=== PATIENT | male | born 2000 | race Caucasian/White ===

== ENCOUNTER 2021-03-14 09:11 | Emergency (ER) | payer BC, SELFPAY ==
[2021-03-14 09:28] VITALS: BP 125/74; PULSE 70; RESP 18; TEMP 36.8; O2SAT 98; BMI 33.7
[2021-03-14 09:49] VITALS: PULSE 70; RESP 18; TEMP 36.8; O2SAT 98; BMI 33.6
--- NOTE | 2021-03-14 09:57 | HMH.EDUTC ---
[facility] [place] Disposition Clinical Impression: Nausea & vomiting Qualifiers: Vomiting type: unspecified Vomiting Intractability: unspecified Qualified Code(s): R11.2 - Nausea with vomiting, unspecified Disposition: Home, Self-Care Condition on Discharge: Good Instructions: Nausea and Vomiting-Adult, DI for Nausea -- Adult, Ondansetron Additional Instructions: Drink extra fluids with and between meals. If you have difficulty drinking, try very small amounts of water or suck on ice chips. ? Avoid fruit juices, as these do not replace minerals and can actually increase diarrhea. ? Children and adults can use sports drinks to replenish electrolytes. Younger children and infants should use products formulated for children, like oral rehydration solutions. ? Eat food in small amounts and let your stomach recover. ? Get lots of rest. You may feel tired or weak. ? No greasy or fried foods for the next 24-48 hours BRAT diet Bananas Rice Apples and Terril ? Make sure to drink plenty of liquids ? Return if needed ? Straight to ER if any life threatening symptoms ? Zofran as prescribed ? Follow up with family doctor in the next 48-72 hours if no improvement or any worsening of symptoms Prescriptions: Ondansetron [Zofran 4mg ODT] 4 mg PO TIDP PRN #10 tab PRN Reason: Nausea Transmission Status: Pending to [facility]/pharmacy #[id number] Referrals: Provider,Referral, MD [Primary Care Provider] - As needed Forms: Work/School Release Time of Disposition: 10:34 Medical Decision Making - Aydin Inquiry Pt receiving controlled substance: No Aydin was queried for this patient: No Vital Signs: 03/14/21 09:28 03/14/21 09:49 03/14/21 10:21 Temperature 98.2 F 98.2 F 98.2 F Temperature Source Oral Oral Pulse Rate 76 Pulse Rate [Left Radial] 70 70 Respiratory Rate 18 18 16 Blood Pressure 122/78 Blood Pressure [Left Arm] 125/74 Blood Pressure Mean [Left Arm] 91 Blood Pressure Source [Left Arm] Automatic Cuff Blood Pressure Position [Left Arm] Sitting 02 Sat by Pulse Oximetry 98 98 Oxygen Delivery Method Room Air Orders (Tests/Meds): ED MEDICATIONS Discontinued Medications Generic Name Dose Route Start Last Admin Trade Name Freq PRN Reason Stop Dose Admin Ibuprofen 600 mg 03/14/21 09:57 03/14/21 10:11 Ibuprofen 600 Mg Tablet PO 03/14/21 09:58 600 mg ONCE ONE Administration Ondansetron HCl 4 mg 03/14/21 09:57 03/14/21 10:11 Ondansetron 4mg Odt SL 03/14/21 09:58 4 mg ONCE ONE Administration Medical Decision Narrative: Patient state that medication helped with headache and nausea No vomiting since arrival [facility] [place] HPI - General Stated complaint: vomiting Time Seen by Provider: 03/14/21 09:57 Mode of Arrival: Ambulatory Source of Information: Patient Limitations: No Limitations Description of Symptoms (Recalled from Triage Doc. by RN): pt c/o n/v and HARRIS HEENT Symptoms (Recalled from RN notes): Yes (HARRIS) Resp Symptoms (Recalled from RN notes): No Skin Symptoms (Recalled from RN notes): No MS Symptoms (Recalled from RN notes): No Functional Status (Recalled from RN notes): na - History of Present Illness Provider Complaint: Patient states that he thinks something he eat yesterday has made him sick State that he eat yesterday evening and when he got home he laid down States that he woke up and started having mild headache and vomiting States that he has continued to have vomiting and headache since State that he does have headaches and this is like other headaches he has had in the past denies changes in vision or worse headache of his life Denies any other symptoms - Related Data Previous Rx's Medication Instructions Recorded Ondansetron [Zofran 4mg ODT] 4 mg PO TIDP PRN #10 tab 03/14/21 Allergies Allergy/AdvReac Type Severity Reaction Status Date / Time No Known Allergies Allergy Verified 03/14/21 09:52 - Worker's Comp Is this a Worker's Comp case?: No [facility] History
[2021-03-14 10:21] VITALS: BP 122/78; PULSE 76; RESP 16; TEMP 36.8
== END 2021-03-14 10:45 | disposition home or self-care (01) ==
LOC: ER 09:34 → UTC 09:35
PROVIDERS: Emergency Provider Nurse Practitioner
DX: R51.9 Headache, unspecified (principal); R11.0 Nausea
CPT/HCPCS: 99202; G0463

== ENCOUNTER 2021-04-10 13:32 | Emergency (ER) | payer BC, SELFPAY ==
--- NOTE | 2021-04-10 15:20 | HMH.EDUTC ---
[facility] [place] Impression: Viral syndrome, Bronchitis Disposition: Home, Self-Care Condition on Discharge: Good Instructions: DI for Acute Bronchitis, Preventing the Spread of Coronavirus Discharge Instructions Additional Instructions: Drink plenty of fluids. Take tylenol or ibuprofen for pain or fever. Take the medications as directed. Follow up with your regular doctor. GO TO THE ER FOR ANY WORSENING SYMPTOMS Quarantine until you know the results of your covid-19 test. If it is positive, the health department should call you and give you further instructions about your length of Quarantine and other things. Notify your school or workplace of your results and follow their instructions regarding return to work/school. Prescriptions: Albuterol Sulfate [Albuterol Sulfate Hfa] 2 puffs IH Q6HP PRN 30 Days #1 hfa.[email or web address] PRN Reason: Shortness Of Breath Transmission Status: Received by [facility]/pharmacy #[id number] dexAMETHasone [Dexamethasone] 6 mg PO DAILY 6 Days #6 tab Transmission Status: Received by [facility]/pharmacy #[id number] Azithromycin [Z-Ton 250mg Tab*] 250 mg PO UD DOSE PK #6 tab Transmission Status: Received by [facility]/pharmacy #[id number] Referrals: Provider,Referral, [Primary Care Provider] - Forms: Work/School Release Time of Disposition: 16:22 Medical Decision Making - Medical Records Medical records reviewed: No: I reviewed the patient's medical records. - Aydin Inquiry Pt receiving controlled substance: No Vital Signs: 04/10/21 15:22 04/10/21 16:00 Temperature 99.8 F H 99.9 F H Temperature Source Oral Pulse Rate 86 Pulse Rate [Left] 89 Respiratory Rate 21 20 Blood Pressure 127/75 Blood Pressure [Right Arm] 139/79 Blood Pressure Mean [Right Arm] 99 02 Sat by Pulse Oximetry 99 - Lab Data Lab results reviewed: Yes: I reviewed the patient's lab results. Lab Results 04/10/21 15:30: Strep Scn Rapid Clinic Negative Orders (Tests/Meds): ORDERS Category Date Time Status Full Resp Panel w/COVID ([facility]) Routine Lab 04/10/21 15:34 Received Strep Screen Confirmation Stat Micro 04/10/21 15:30 Received [facility] HPI - General Stated complaint: reaction to covid vaccine Time Seen by Provider: 04/10/21 15:20 - History of Present Illness Provider Complaint: He states that he had the first shot of the covid-19 vaccine yesterday. He is unsure which vaccine he took (Pfizer or Moderna). Since then he has had cough, chest tightness and he has felt very bad. He felt fine before his vaccine. But, he did have a viral type illness about a week ago that he had some coughing and nasal congestion with. He got better from that pretty quick, until his new symptoms started. He does not have a history asthma or other lung disease. - Related Data Previous Rx's Medication Instructions Recorded Ondansetron [Zofran 4mg ODT] 4 mg PO TIDP PRN #10 tab 03/14/21 Albuterol Sulfate [Albuterol 2 puffs IH Q6HP PRN 30 Days #1 04/10/21 Sulfate Hfa] hfa.aer.ad Azithromycin [Z-Ton 250mg Tab*] 250 mg PO UD DOSE PK #6 tab 04/10/21 dexAMETHasone [Dexamethasone] 6 mg PO DAILY 6 Days #6 tab 04/10/21 Allergies Allergy/AdvReac Type Severity Reaction Status Date / Time No Known Allergies Allergy Verified 03/14/21 09:52 [facility] History - Hepatitis A Screen Attestation statement:: This patient has been screened for Hepatitis A risk factors. I have reviewed the patient's past medical history: Yes Other Surgeries: Yes: No Previous Surgery Amputation: No Fractures: No - Social History Smoking Status: Never smoker Alcohol Intake: never Substance Use Type: denies use Occupational Status: student Housing: house Household Members: family Family Hx:: No significant family history ROS Obtained: Yes All systems reviewed & no additional complaints - Constitutional Constitutional: Reports as per HPI - Eyes Eyes: Denies eye discharge - ENT Ears, Nose, Mouth, and Throat: Reports as p
[2021-04-10 15:22] VITALS: BP 139/79; PULSE 89; RESP 21; TEMP 37.7; O2SAT 99; BMI 33.0
--- NOTE | 2021-04-10 15:27 | XR_ITS ---
PROCEDURE: XR CHEST 2V CLINICAL HISTORY: cough, congestion COMPARISON: No exams were available for comparison FINDINGS: The cardiomediastinal silhouette and pulmonary vascularity are within normal limits. There is vague increased density in the left lung base laterally suspicious for patchy area of infiltrate. No acute bony abnormalities. IMPRESSION: Patchy infiltrate/pneumonia in the left lung base laterally Dictated by: Denny Kohli MD 04/10/2021 16:24 Denny Kohli MD in [place] 04/10/2021 16:24
[2021-04-10 16:00] VITALS: BP 127/75; PULSE 86; RESP 20; TEMP 37.7
[2021-04-10 16:47] LABS: Adenovirus,PCR Not Detected (NotDetected); Bordetella Pertussis Not Detected (NotDetected); Chlamydophila Pneumoniae, PCR Not Detected (NotDetected); Coronavirus 229E Not Detected (NotDetected); Coronavirus NL63 Not Detected (NotDetected); Coronavirus OC43 Not Detected (NotDetected); Coronovirus HKU1,PCR Not Detected (NotDetected); Human Metapneumovirus Not Detected (NotDetected); Influenza A, PCR Not Detected (NotDetected); Influenza AH1, 2009 Not Detected (NotDetected); Influenza AH1, PCR Not Detected (NotDetected); Influenza AH3,PCR Not Detected (NotDetected); Influenza B, PCR Not Detected (NotDetected); Mycoplasma Pneumoniae, PCR Not Detected (NotDetected); Parainfluenza 1, PCR Not Detected (NotDetected); Parainfluenza 2, PCR Not Detected (NotDetected); Parainfluenza 3, PCR Not Detected (NotDetected); Parainfluenza 4, PCR Not Detected (NotDetected); Respiratory Syncytial Virus Not Detected (NotDetected); Rhinovirus/Enterovirus Not Detected (NotDetected)
[2021-04-10 19:42] LABS: UTC Strep Screen (Rapid) Negative (Negative)
[2021-04-12 04:01] LABS: Coronavirus 19, PCR Detected (NotDetected)
== END 2021-04-10 16:31 | disposition home or self-care (01) ==
PROVIDERS: Emergency Provider Nurse Practitioner Family
DX: U07.1 COVID-19 (principal); B34.9 Viral infection, unspecified
CPT/HCPCS: 71046; 87581; 87633; 87798; 87880; 99202; G0463

== ENCOUNTER 2022-01-02 07:53 | Emergency (ER) | payer BC, SELFPAY ==
[2022-01-02 07:58] VITALS: BP 132/81; PULSE 72; RESP 18; TEMP 36.7; O2SAT 99; BMI 33.7
--- NOTE | 2022-01-02 08:13 | HMH.EDGENADL ---
ED Disposition Clinical Impression: Colitis Disposition: Home, Self-Care Condition on Discharge: Good Additional Instructions: Please note that you CT imaging shows inflammation of your colon and fatty liver. Additionally, your liver enzymes are mildly elevated. Please follow-up with your primary care physician regarding these findings to ensure your enzymes normalize. If you use alcohol, please discontinue any alcohol use or drinking. Continue supportive care at home at this time including ibuprofen, Tylenol and plentiful hydration. If your condition worsens or any other concerns arise, please return to the emergency department for reassessment. Referrals: Provider,Referral, [Primary Care Provider] - - Critical Care Critical Care Time: No Attestation: On 01/02/22, the high probability of a clinically significant, sudden or life threatening deterioration of the following system(s) required my full and direct attention, intervention and personal management. The time I documented below is in addition to time spent performing reported procedures but includes the following listed in this critical care notation. Medical Decision Making - Medical Records Medical records reviewed: Yes: I reviewed the patient's medical records. - Aydin Inquiry Pt receiving controlled substance: No Vital Signs: 01/02/22 07:58 01/02/22 09:30 01/02/22 10:01 Temperature 98.1 F Temperature Source Oral Pulse Rate 70 73 Pulse Rate [Left Radial] 72 Respiratory Rate 18 Blood Pressure 124/71 123/67 Blood Pressure [Right Arm] 132/81 Blood Pressure Mean 85 84 Blood Pressure Mean [Right Arm] 98 02 Sat by Pulse Oximetry 99 99 100 - Lab Data Lab results reviewed: Yes: I reviewed the patient's lab results. Lab Results 01/02/22 09:04: WBC 6.4, RBC 5.19, Hgb 16.3, Hct 48.2, MCV 92.9, MCH 31.3 H, MCHC 33.7, RDW 13.3, Plt Count 324, MPV 7.4, Neut % (Auto) 59.5, Lymph % (Auto) 29.9, [place] % (Auto) 5.7, Eos % (Auto) 2.6, Baso % (Auto) 2.4 H, Neut # (Auto) 3.8, Lymph # (Auto) 1.9, [place] # (Auto) 0.4, Eos # (Auto) 0.2, Baso # (Auto) 0.2 01/02/22 09:04: Sodium 140, Potassium 4.2, Chloride 102, Carbon Dioxide 31 H, Anion Gap 11.2, BUN 10, Creatinine 0.70, Estimated Creat Clear 254, Estimated GFR 144, Est GFR ( Amer) 174, Glucose 100, Calcium 9.6, Total Bilirubin 0.5, AST 74 H, ALT 127 H, Alkaline Phosphatase 73, Total Protein 7.3, Albumin 4.6, Globulin 2.7, Albumin/Globulin Ratio 1.7, Lipase 70 01/02/22 09:04: Lactate 1.0 Result diagrams: 01/02/22 09:04 01/02/22 09:04 Orders (Tests/Meds): ED MEDICATIONS Discontinued Medications Generic Name Dose Route Start Last Admin Trade Name Catina PRN Reason Stop Dose Admin Acetaminophen 1,000 mg 01/02/22 08:33 01/02/22 09:17 Acetaminophen 500mg Tab PO 01/02/22 08:34 Not Given ONCE ONE Iopamidol 75 ml 01/02/22 09:18 01/02/22 09:18 Iopamidol-370 (76%);100ml Bottle IV 01/02/22 09:19 75 ml ONCE ONE Administration Ondansetron HCl 4 mg 01/02/22 08:31 01/02/22 09:17 Ondansetron 4mg/2ml Vial IV 01/02/22 08:32 Not Given ONCE ONE Sodium Chloride 10 ml 01/02/22 09:18 01/02/22 09:18 Sodium Chloride 0.9% 10ml Syr (Rad Only) IV 01/02/22 09:19 10 ml ONCE ONE Administration - CT Data CT Scan: Abdomen, Pelvis Time Received: 10:55 Medical Decision Narrative: Patient is a 21-year-old male presenting with chief complaint of epigastric and lower abdominal pain, worst in the right lower quadrant. Differential diagnosis includes, but is not limited to, appendicitis, gastroenteritis, colitis, constipation, urinary pathology such as urinary tract infection, dehydration. Initial exam, patient is hemodynamically stable nontoxic-appearing. He was evaluated with CBC, CMP, lactic acid, lipase, CT abdomen pelvis with contrast. Patient was treated with p.o. Tylenol and IV Zofran. Lab work is unremarkable aside from mild elevation in transaminases.
--- NOTE | 2022-01-02 08:31 | CT_ITS ---
FINAL REPORT CLINICAL HISTORY: RLQ abd pain FINDINGS: CT OF THE ABDOMEN AND PELVIS WITH CONTRAST Axial CT images of the abdomen and pelvis were obtained after the administration of iv contrast. Coronal reformatted images were also obtained and reviewed.This study was performed with techniques to keep radiation doses as low as reasonably achievable (ALARA). Individualized dose reduction techniques using automated exposure control or adjustment of mA and/or kV according to the patient's size were employed. Abdomen: The lung bases are clear. The heart is normal in size. There is fatty infiltration of the liver. The gallbladder is present. The spleen is unremarkable. No adrenal mass is present. The pancreas has an unremarkable appearance. The kidneys are normal, without evidence of mass or hydronephrosis. The aorta is normal in caliber. There is no free fluid or adenopathy. No mass or abnormal fluid collection is seen. Pelvis: The appendix is not well-visualized. The urinary bladder is unremarkable. There is mild wall thickening of the ascending and proximal transverse colon. Mild colitis is not excluded. There is no bowel obstruction. There is no evidence of mass or adenopathy. IMPRESSION: Fatty liver. Mild wall thickening of the ascending and proximal transverse colon. Mild colitis is not excluded. Reviewed, Interpreted and Dictated by Delroy Bonilla III, MD Transcribed by Vivian Fernando Authenticated by Delroy Bonilla III, MD on 01/02/2022 10:16:05 AM [facility]
[2022-01-02 09:16] LABS: Basophils # 0.2 K/mm3 (0-0.2); Basophils % 2.4 % (0.1-2.0); Eosinophils # 0.2 K/mm3 (0.0-0.4); Eosinophils % 2.6 % (0.1-12.0); Hematocrit 48.2 % (42.0-52.0); Hemoglobin 16.3 g/dL (14.1-18.0); Lymphocytes # 1.9 K/mm3 (0.7-4.5); Lymphocytes % 29.9 % (10-50); Mean Corpuscular HGB Conc 33.7 g/dL (31.8-35.4); Mean Corpuscular Hemoglobin 31.3 pg (27.0-31.2); Mean Corpuscular Volume 92.9 fl (80-94); Mean Platelet Volume 7.4 fl (7.4-10.4); Monocytes # 0.4 K/mm3 (0.1-1.0); Monocytes % 5.7 % (1.7-9.3); Neutrophils # 3.8 K/mm3 (1.8-7.8); Neutrophils % 59.5 % (37.0-80.0); Platelet Count 324 K/mm3 (142-424); Red Blood Count 5.19 M/mm3 (4.60-6.20); Red Cell Distribution Width 13.3 % (11.5-17.5); White Blood Count 6.4 K/mm3 (4.5-13.0)
[2022-01-02 09:29] LABS: Alanine Aminotransferase 127 U/L (12-78); Albumin Level 4.6 g/dl (3.5-5.0); Albumin/Globulin Ratio 1.7 (1.1-1.8); Alkaline Phosphatase 73 U/L (38-126); Aspartate Amino Transferase 74 U/L (17-59); Bilirubin,Total 0.5 mg/dl (0.2-1.3); Blood Urea Nitrogen 10 mg/dl (9-20); Calcium 9.6 mg/dl (8.4-10.2); Carbon Dioxide 31 mmol/L (22.0-30.0); Creatinine Clearance Estimated 254 mL/min (50-200); Estimated Glomerular Filt Rate 144 ml/min (>60); GFR (African American) 174 ML/MIN (>60); Globulin 2.7 g/dL (1.3-3.2); Glucose 100 mg/dl (74-100); Lipase 70 U/L (23-300); Potassium 4.2 mmoL/L (3.5-5.1); Sodium 140 mmol/L (136-145); Total Protein,Serum 7.3 g/dl (6.3-8.2)
[2022-01-02 09:30] VITALS: BP 124/71; PULSE 70; O2SAT 99
[2022-01-02 09:41] LABS: Anion Gap 11.2 mEq/L (5-15); Chloride 102 mmol/L (98-107)
[2022-01-02 10:01] VITALS: BP 123/67; PULSE 73; O2SAT 100
[2022-01-02 11:00] VITALS: BP 125/74; PULSE 81; RESP 17; TEMP 37.2; O2SAT 99
== END 2022-01-02 11:00 | disposition home or self-care (01) ==
PROVIDERS: Emergency Provider Emergency Medicine
DX: K52.9 Noninfective gastroenteritis and colitis, unspecified (principal)
CPT/HCPCS: 74177; 80053; 83605; 83690; 85025; 99284; Q9967